=== PATIENT | male | born 1960 | race Two or more races ===

== ENCOUNTER → 2017-04-28 | Outpatient (CLI) | payer BC ==
--- NOTE | 2017-04-29 18:21 | PCVCIMAG ---
APPROVED REPORT Exam: Stress Echocardiogram Indication: Dyspnea, HTN, Murmur Patient Location: Echo lab Stress Nurse: Olga Lidia Moreno RN Status: routine Ht: 5 ft 9 in HR: 57 bpm BP: 144/90 mmHg Rhythm: NSR Procedure The patient underwent an Exercise Stress Test using the Brian Protocol. Blood pressure, heart rate, and EKG were monitored. An Echocardiogram was performed by telecommunication tower technician in four stages in quad fashion. At peak stress, four selected images were obtained and placed side by side with resting images for comparison. Stress Test Details Stress Test: Exercise stress testing was performed using a Brian protocol. HR Resting HR: 57 bpmMax Heart Rate (APMHR): 164 bpm Max HR Achieved: 125 bpmTarget HR (85% APMHR): 139 bpm % of APMHR: 76 Recovery HR: 72 bpm HR response to stress: Normal HR response to stress BP Resting BP: 144/90 mmHg Max BP: 200/62 mmHg Recovery BP: 160/62 mmHg ECG Resting ECG: Sinus Rhythm Stress ECG: Sinus Rhythm ST Change: Normal Arrhythmia: None Recovery ECG: Sinus Rhythm Recovery ST Change: Normal Recovery Arrhythmia: None Clinical Reason for Termination: Limiting knee and ankle issues, Maximal effort Stress Symptoms: Dyspnea Exercise duration: 9 min sec Highest Stage Achieved: Stage 3: 3.4 mph at 14% grade. Exercise capacity: 10.4 METs Overall Exercise Capacity for Age: Average Pre-Stress Echo The resting Echocardiogram showed normal left ventricular contractility with an estimated Ejection Fraction of about >55%. Normal wall motion in all segments on baseline images. Post-Stress Echo The stress Echocardiogram showed normal left ventricular contractility with an estimated Ejection Fraction of about 65%. Normal augmentation of wall motion in all segments on post stress images. Clinical No clinical or ECG evidence for ischemia. Conclusion Clinical Response: Non-ischemic Exercise Capacity: Average Stress ECG Response: Non-ischemic Stress Echo Images: Non-ischemic The left ventricle is normal in size and wall thickness in both the rest and stress images. Normally functioning aortic, mitral and tricuspid valves. Other Information Study Quality: Adequate <Conclusion> The left ventricle is normal in size and wall thickness in both the rest and stress images. Normally functioning aortic, mitral and tricuspid valves.
== END | disposition home or self-care (01) ==
LOC: PCVCIMAG 11:01
PROVIDERS: ATTEND Internal Medicine Cardiovascular Disease
DX: I10 Essential (primary) hypertension (principal); E78.4 Other hyperlipidemia; R01.1 Cardiac murmur, unspecified
CPT/HCPCS: 93325; 93351